=== PATIENT | male | born 1965 | race Caucasian/White ===

== ENCOUNTER → 2020-04-23 | Outpatient (CLI) | payer BC ==
[2013-07-10 19:10] VITALS: BP 154/103
[~2020-04-23] MED LIST: METOPROLOL SUCC50 MG PO; PRILOSEC 20MG20 MG PO
== END ==
LOC: VAS 17:01
DX: R06.00 Dyspnea, unspecified (principal)

== ENCOUNTER 2024-02-07 11:58 | Emergency (ER) | payer MEDICAID ==
[~2024-02-07] VITALS: Ht 177.8 cm; Wt 113.6 kg
[2024-02-07] MEDS ORDERED: HYDROmorphone 2 MG TAB PO ONE ×2 (12:30→20:15)
[2024-02-07 12:59] LABS: BASO # 0.02 K/mm3 (0.02-0.10); EOS # 0.05 K/mm3 (0.04-0.40); EOS % 0.7 % (0.0-4.0); HEMATOCRIT 48.1 % (42.0-52.0); HEMOGLOBIN 16.8 g/dL (13.5-18.0); LYMPH# 2.64 K/mm3 (1.50-4.00); MEAN CELL VOLUME 88 fl (78-100); MEAN CORPUSCULAR HEMOGLOBIN 31 pg (27-31); MEAN CORPUSCULAR HGB CONC 35 g/dL (33-37); MEAN PLATELET VOLUME 8.7 fl (7.4-10.4); MONO # 0.35 K/mm3 (0.20-0.80); NEU # 4.05 K/mm3 (1.40-6.50); PLATELET COUNT 208 K/mm3 (130-400); RED BLOOD COUNT 5.45 M/mm3 (4.20-5.60); RED CELL DISTRIBUTION WIDTH 15.5 % (11.5-14.5); WHITE BLOOD COUNT 7.2 K/mm3 (4.8-10.8)
[2024-02-07 13:04] LABS: ALBUMIN 4.5 g/dL (3.5-5.0); SODIUM 138 mmol/L (136-145)
[2024-02-07 13:05] LABS: CALCIUM 9.5 mg/dL (8.3-10.5)
[2024-02-07 13:06] LABS: GLUCOSE 155 mg/dL (75-110); TOTAL PROTEIN 8.2 g/dL (6.4-8.3)
[2024-02-07 13:07] LABS: CARBON DIOXIDE 19 mmol/L (22-29)
[2024-02-07 13:09] LABS: ALCOHOL IN-HOUSE 170 mg/dL (<10)
[2024-02-07 13:11] LABS: AST-SGOT 21 U/L (5-34)
[2024-02-07 13:13] LABS: ALT/SGPT 18 U/L (0-55)
[2024-02-07 13:14] LABS: ACETAMINOPHEN < 1 ug/mL
[2024-02-07 14:04] VITALS: BP 152/101
[2024-02-07] MEDS ORDERED: LYRICA 25MG CAP25 MG PO (16:35)
[2024-02-07] MEDS ORDERED: Pregabalin 25 MG CAP PO ONE (17:00)
[2024-02-07] MEDS ORDERED: LORazepam 0.5 MG TABLET PO ONE (19:30)
[2024-02-07] MEDS ORDERED: ESOMEPRAZOLE MA40 M1 (19:44)
[2024-02-08] VITALS (8 sets, daily range): BP systolic 151–171; BP diastolic 18–109
[2024-02-08] MEDS ORDERED: PREGABALIN75 MG PO (00:26)
[2024-02-08] MEDS ORDERED: INSULIN GL100 UNIT/2 SQ (00:27)
[2024-02-08] MEDS ORDERED: Pregabalin 25 MG CAP PO ONE (00:30)
[2024-02-08] MEDS ORDERED: Acetaminophen 500 MG TAB PO ONE (00:45)
[2024-02-08] MEDS ORDERED: HYDROmorphone 2 MG TAB PO ONE (04:00)
[2024-02-08] MEDS ORDERED: Pregabalin 150 MG CAP PO ONE (09:45)
[2024-02-08] MEDS ORDERED: Pregabalin 150 MG CAP PO SCH (09:53)
[2024-02-08] MEDS ORDERED: HYDROmorphone 2 MG TAB PO PRN (12:00)
[2024-02-09] VITALS (11 sets, daily range): BP systolic 134–159; BP diastolic 84–105
[2024-02-09] MEDS ORDERED: Pregabalin 50 MG CAP PO SCH ×2 (09:00)
[2024-02-10] VITALS (9 sets, daily range): BP systolic 132–151; BP diastolic 86–113
[2024-02-10] MEDS ORDERED: Famotidine 20 MG TAB PO ONE (09:15)
== END 2024-02-10 17:00 ==
LOC: ED 11:58
PROVIDERS: Physician Assistant
DX: R45.851 Suicidal ideations (principal); G89.29 Other chronic pain; F11.10 Opioid abuse, uncomplicated
CPT/HCPCS: J1815